=== PATIENT | male | born 1980 | race Caucasian/White ===

== ENCOUNTER 2016-03-26 08:12 | Emergency (ER) | payer OTHER ==
[2016-03-26 08:26] VITALS: TEMP 97.4
[2016-03-26] MEDS ORDERED: KETOROLAC TROMETHAMINE 30 MG/ML SOL IM ONE (08:40)
[2016-03-26] MEDS ORDERED: KETOROLAC TROMETHAMINE 30 MG/ML SOL ONE (08:44)
[2016-03-26 08:53] VITALS: BP 124/77; O2SAT 100
[2016-03-26] MEDS ORDERED: ALBUTEROL/IPRATROPIUM 1 VIAL SOL INH ONE (09:01)
[2016-03-26] MEDS ORDERED: ALBUTEROL/IPRATROPIUM 1 VIAL SOL ONE (09:03)
[2016-03-26 09:13] VITALS: PULSE 72; RESP 20
== END 2016-03-26 09:37 | disposition home or self-care (01) | DRG 313 ==
LOC: ED 08:12
DX: R07.89 Other chest pain (principal); R06.00 Dyspnea, unspecified; Z98.890 Other specified postprocedural states
CPT/HCPCS: 71020; 93005; 96372; 99284; J1885; J7620

== ENCOUNTER 2016-04-23 11:54 | Emergency (ER) | payer OTHER ==
[2016-04-23] MEDS ORDERED: PREDNISONE 20 MG TAB PO ONE (12:24)
[2016-04-23] MEDS ORDERED: ALBUTEROL/IPRATROPIUM 1 VIAL SOL INH ONE (12:24)
[2016-04-23] MEDS ORDERED: PREDNISONE 20 MG TAB ONE (12:28)
[2016-04-23] MEDS ORDERED: ALBUTEROL/IPRATROPIUM 1 VIAL SOL ONE (12:28)
[2016-04-23 12:32] VITALS: BP 131/88; TEMP 97.4
[2016-04-23 12:36] VITALS: PULSE 78; RESP 18; O2SAT 98
== END 2016-04-23 13:18 | disposition home or self-care (01) | DRG 204 ==
LOC: ED 11:54
DX: R06.02 Shortness of breath (principal); F41.9 Anxiety disorder, unspecified; K52.9 Noninfective gastroenteritis and colitis, unspecified; R79.81 Abnormal blood-gas level; X00.1XXA Exposure to smoke in uncontrolled fire in building or structure, initial encounter; Y92.71 Barn as the place of occurrence of the external cause
CPT/HCPCS: 71010; 99282; 99283; 99284; J7620

== ENCOUNTER 2016-04-23 21:55 | Emergency (ER) | payer OTHER ==
[2016-04-23 22:08] VITALS: PULSE 91; RESP 32; TEMP 97.8
[2016-04-23] MEDS ORDERED: LORAZEPAM 0.5 MG TAB PO ONE (22:15)
[2016-04-23] MEDS ORDERED: TRAMADOL HYDROCHLORIDE 50 MG TAB PO ONE (22:15)
[2016-04-23] MEDS ORDERED: LORAZEPAM 0.5 MG TAB ONE (22:16)
[2016-04-23] MEDS ORDERED: TRAMADOL HYDROCHLORIDE 50 MG TAB ONE (22:16)
[2016-04-23 23:12] VITALS: BP 122/87; O2SAT 95
== END 2016-04-23 22:28 | disposition home or self-care (01) | DRG 880 ==
LOC: ED 21:55
DX: F41.9 Anxiety disorder, unspecified (principal); R79.81 Abnormal blood-gas level; X00.1XXA Exposure to smoke in uncontrolled fire in building or structure, initial encounter; Y92.71 Barn as the place of occurrence of the external cause
CPT/HCPCS: 99282

== ENCOUNTER 2017-05-14 21:54 | Emergency (ER) | payer OTHER ==
[2017-05-14] MEDS ORDERED: NITROGLYCERIN 0.4 MG TAB SL ONE (21:58)
[2017-05-14] MEDS ORDERED: ASPIRIN 81 MG CHEWABLE CTB ONE (21:58)
[2017-05-14] MEDS ORDERED: MORPHINE SULFATE 10 MG/ML SOL IV ONE (21:59)
[2017-05-14] MEDS ORDERED: ASPIRIN 81 MG CHEWABLE CTB PO ONE (21:59)
[2017-05-14] MEDS ORDERED: METOPROLOL TARTRATE 5 MG/5 ML SOL IV ONE (22:00)
[2017-05-14] MEDS ORDERED: LIDOCAINE HCL 2% (VISCOUS) 20 ML SOL MT ONE (22:01)
[2017-05-14] MEDS: NITROGLYCERIN 0.4 MG TAB SL PRN ×2 (22:01→22:08)
[2017-05-14] MEDS ORDERED: MAGNESIUM HYDROXIDE 30 ML SUS PO PRN (22:01)
[2017-05-14] MEDS: SODIUM CHLORIDE 0.9% 1000ML 1,000 ML IV SCH ×2 (22:07→23:00)
[2017-05-14 22:08] LABS: BASOPHILS % (AUTO) 1 % (0-3); EOSINOPHILS % (AUTO) 2 % (0-9); HEMATOCRIT 46 % (39-53); MEAN CORPUSCULAR HGB CONC 33.6 gm/dl (32.0-36.0); MEAN CORPUSCULAR VOLUME 85 fL (80-100); MONOCYTES % (AUTO) 9.9 % (0-12); NEUTROPHILS % (AUTO) 58.5 % (37-80)
[2017-05-14] MEDS ORDERED: ALUMINUM/MAGNESIUM 30 ML SUS PO ONE (22:10)
[2017-05-14 22:18] VITALS: TEMP 98.4
[2017-05-14 22:27] LABS: CALCIUM 9.1 mg/dl (8.5-10.1); GLOM FILT RATE 57 mL/min (>60); POTASSIUM 3.7 mMol/L (3.5-5.1); SODIUM 140 mMol/L (136-145)
[2017-05-14] MEDS ORDERED: SODIUM CHLORIDE 0.9% FLUSH 10 ML SOL IV PRN (22:28)
[2017-05-14 22:31] VITALS: RESP 16
[2017-05-14 23:27] VITALS: BP 112/77; PULSE 70; O2SAT 94
== END 2017-05-14 22:55 | disposition home or self-care (01) ==
LOC: ED 21:54
DX: R07.89 Other chest pain (principal); K21.9 Gastro-esophageal reflux disease without esophagitis
CPT/HCPCS: 71045; 80048; 83880; 84484; 85025; 93005; 96365; 99283; 99285; A9270-GY

== ENCOUNTER 2017-10-07 07:12 | Emergency (ER) | payer OTHER ==
[2017-10-07 07:26] VITALS: BP 142/78; PULSE 74; RESP 20; TEMP 96.7; O2SAT 97
== END 2017-10-07 08:05 | disposition home or self-care (01) ==
LOC: ED 07:12
DX: J01.91 Acute recurrent sinusitis, unspecified (principal)
CPT/HCPCS: 99282

== ENCOUNTER 2018-01-21 08:50 | Day surgery (SDC) | payer OTHER ==
[2018-01-21] MEDS ORDERED: PROPOFOL 500 MG/50 ML EMU IV ONE (10:45)
[2018-01-21] MEDS ORDERED: PROPOFOL 10 MG/ML 200 MG/20 ML EMU IV ONE (11:23)
[2018-01-21 12:27] VITALS: BP 111/69; PULSE 48; RESP 18; TEMP 97.4; O2SAT 96
== END 2018-01-21 12:15 | disposition home or self-care (01) ==
LOC: SURG 08:50
PROVIDERS: ATTEND Surgery
DX: K21.9 Gastro-esophageal reflux disease without esophagitis (principal); R19.7 Diarrhea, unspecified; Q39.9 Congenital malformation of esophagus, unspecified; D12.3 Benign neoplasm of transverse colon; D12.8 Benign neoplasm of rectum; K20.9 Esophagitis, unspecified
CPT/HCPCS: J2704

== ENCOUNTER 2018-01-27 09:06 | Emergency (ER) | payer OTHER ==
[2018-01-27 09:26] VITALS: TEMP 96.8; O2SAT 97
[2018-01-27 10:20] VITALS: BP 133/74; PULSE 65; RESP 16
== END 2018-01-27 10:05 | disposition home or self-care (01) ==
LOC: ED 09:06
DX: H66.91 Otitis media, unspecified, right ear (principal); H60.91 Unspecified otitis externa, right ear
CPT/HCPCS: 99282; 99283

== ENCOUNTER 2018-01-29 03:22 | Emergency (ER) | payer OTHER ==
[2018-01-29] MEDS ORDERED: TRAMADOL HYDROCHLORIDE 50 MG TAB PO ONE (03:39)
[2018-01-29] MEDS ORDERED: TRAMADOL HYDROCHLORIDE 50 MG TAB ONE (03:42)
[2018-01-29] MEDS ORDERED: FENTANYL 100MCG/2ML SOL IM ONE (04:46)
[2018-01-29] MEDS ORDERED: FENTANYL 100MCG/2ML SOL ONE (04:54)
[2018-01-29 06:23] VITALS: TEMP 97.6
[2018-01-29 06:24] VITALS: BP 114/70; PULSE 65; RESP 20; O2SAT 97
== END 2018-01-29 05:46 | disposition home or self-care (01) ==
LOC: ED 03:22
DX: H60.501 Unspecified acute noninfective otitis externa, right ear (principal); H66.011 Acute suppurative otitis media with spontaneous rupture of ear drum, right ear
CPT/HCPCS: 96372; 99283; J3010; A9270-GY

== ENCOUNTER 2018-10-27 08:23 | Emergency (ER) | payer SELFPAY, OTHER | END 2018-10-27 11:53 | disposition home or self-care (01) | LOC: ED 08:23 ==